=== PATIENT | female | born 1995 | race Caucasian/White ===

== ENCOUNTER 2016-06-19 22:23 | Emergency (ER) | payer BC ==
[~2016-06-19] VITALS: Ht 165.1 cm; Wt 81.8 kg
[~2016-06-19 22:23] MED LIST: ACET-818 PO; PEN500 PO
[2016-06-19 22:41] VITALS: Ht 165.1 cm; Wt 81.8 kg
[2016-06-20] MEDS ORDERED: LORAZEPAM 2 MG INJ IM ONE (00:30)
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
[2016-06-20] MEDS ORDERED: LORA-441 PO (00:58)
[2016-06-20 01:13] VITALS: BP 131/80; PULSE 75; RESP 18
== END 2016-06-20 01:13 | disposition home or self-care (01) ==
LOC: FTE 22:23
DX: F41.0 Panic disorder [episodic paroxysmal anxiety] (principal); J45.909 Unspecified asthma, uncomplicated; F17.210 Nicotine dependence, cigarettes, uncomplicated
CPT/HCPCS: 96372; J2060; Z7502; 93005

== ENCOUNTER 2016-08-22 05:50 | Emergency (ER) | payer BC ==
[~2016-08-22] VITALS: Ht 152.4 cm; Wt 97.5 kg
[~2016-08-22 05:50] MED LIST changes: +LORA-441 PO
[2016-08-22 05:55] VITALS: Ht 152.4 cm; Wt 97.5 kg
[2016-08-22] MEDS ORDERED: OXYC-279 PO (06:48)
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
== END 2016-08-22 07:14 | disposition home or self-care (01) ==
LOC: FTE 05:50
DX: S89.91XA Unspecified injury of right lower leg, initial encounter (principal); J45.909 Unspecified asthma, uncomplicated; F17.210 Nicotine dependence, cigarettes, uncomplicated; V89.2XXA Person injured in unspecified motor-vehicle accident, traffic, initial encounter
CPT/HCPCS: 29515; Z7502

== ENCOUNTER 2016-09-30 10:18 | Observation (INO) | payer BC ==
[2016-09-29 14:37] VITALS: Ht 193 cm; Wt 98.7 kg
[2016-09-30] VITALS (22 sets, daily range): BP systolic 89–157; BP diastolic 47–91; PULSE 89–116; RESP 16–44
[~2016-09-30] VITALS: Ht 193 cm; Wt 98.7 kg
[~2016-09-30 10:18] MED LIST changes: +CEFAZOLIN 1 GM INJ ONE; +DEXAMETHASONE 4 MG/ML 1 ML INJ ONE; +FENTAnyl 50 MCG/ML VIAL ONE; +GLYCOPYRROLATE 0.4 MG INJ ONE; +LIDOCAINE 2% (SDV) 5 ML INJ ONE; +MIDAZOLAM 1 MG/ML 2 ML INJ ONE; +NEOSTIGMINE 3 MG/3 ML SYRINGE ONE; +ONDANSETRON 4 MG INJ ONE; +OXYC-279 PO; +PROPOFOL 20 ML ONE; +ROCURONIUM 50 MG INJ ONE; +ROPIVACAINE 0.5 % 30 ML VIAL ONE; +SUCCINYLCHOLINE CHLORIDE 100 MG/5 ML SYG IV ONE
--- NOTE | 2016-09-30 12:44 | HPN ---
Date/Time of Note Date/Time of Note DATE: 09/30/16 TIME: 12:44 Interval H&P Admission Note Pt. seen H&P reviewed: No system changes MARY CARLSON MD Sep 30, 2016 12:44
[2016-09-30] MEDS ORDERED: ATROPINE 1 MG/10 ML SYRINGE IV PRN (13:00)
[2016-09-30] MEDS ORDERED: HYDROmorphONE (0.2 MG/ML) 10ML SYG IV PRN ×3 (13:00)
[2016-09-30] MEDS ORDERED: morphine 10 MG INJ IV PRN (13:00)
[2016-09-30] MEDS ORDERED: hydrALAzine 20 MG INJ IV PRN (13:00)
[2016-09-30] MEDS ORDERED: OXYCODONE/ACETAMINOPHEN (5/325) TAB PO PRN ×3 (13:00)
[2016-09-30] MEDS ORDERED: FENTAnyl 50 MCG/ML VIAL IV PRN (13:00)
[2016-09-30] MEDS ORDERED: MIDAZOLAM 1 MG/ML 2 ML INJ IV PRN (13:00)
[2016-09-30] MEDS ORDERED: LABETALOL HCL 20MG INJ IV PRN (13:00)
[2016-09-30] MEDS ORDERED: EPHEDrine SULFATE 50 MG/5 ML SYG IV PRN (13:00)
[2016-09-30] MEDS ORDERED: MEPERIDINE 25 MG INJ IV PRN (13:00)
[2016-09-30] MEDS ORDERED: morphine (1 MG/ML) 10ML SYRINGE IV PRN ×2 (13:00)
[2016-09-30] MEDS ORDERED: DIPHENHYDRAMINE 50 MG INJ IV PRN (13:00)
[2016-09-30] MEDS ORDERED: ONDANSETRON 4 MG INJ IV PRN ×2 (13:00→18:00)
[2016-09-30] MEDS ORDERED: LABETALOL HCL 20MG INJ ONE (13:22)
[2016-09-30] MEDS ORDERED: POLYMYXIN/BACITRACIN 1L IRRIG IRR ONE (13:58)
[2016-09-30] MEDS ORDERED: FENTAnyl 50 MCG/ML VIAL ONE (14:53)
[2016-09-30] MEDS ORDERED: hydrALAzine 20 MG INJ ONE (15:03)
[2016-09-30] MEDS: morphine (1 MG/ML) 10ML SYRINGE IV PRN ×5 (16:41→18:14)
[2016-09-30] MEDS ORDERED: KETOROLAC 30 MG INJ ONE (16:55)
[2016-09-30] MEDS ORDERED: KETOROLAC 30 MG INJ IV STA (16:56)
[2016-09-30] MEDS: FENTAnyl 50 MCG/ML VIAL IV PRN ×2 (17:05→17:41)
[2016-09-30] MEDS ORDERED: ROPIVACAINE 0.5 % 30 ML VIAL ONE (17:08)
--- NOTE | 2016-09-30 17:40 | OPR ---
Date/Time of Note Date/Time of Note DATE: 09/30/16 TIME: 17:40 Operative Report Procedure Date: Sep 30, 2016 Preoperative Diagnosis Right foot lateral process talus fracture Postoperative Diagnosis Right foot lateral process talus fracture Right ankle anterior talofibular ligament tear Operation Performed Right ankle partial excision of lateral process of the talus fracture fragment Right ankle lateral process of talus open reduction internal fixation Right ankle Brostrom Craig lateral ankle ligament reconstruction Surgeon: MARY CARLSON MD Anesthesia: general, other ( popliteal block) Anesthesiologist: MARIELY NAILS MD Tourniquet Time: 127 min at 250 mmHh Estimated Blood Loss: minimal Complications: None Pt Condition Post Procedure: stable Disposition: PACU MARY CARLSON MD Sep 30, 2016 17:40
[2016-09-30] MEDS ORDERED: CEFAZOLIN 1 GM INJ IV SCH (18:00)
[2016-09-30] MEDS ORDERED: ALPRAZOLAM 0.25 MG TAB PO PRN (18:00)
[2016-09-30] MEDS ORDERED: DIPHENHYDRAMINE 25 MG CAP PO PRN (18:00)
[2016-09-30] MEDS ORDERED: CEFAZOLIN 1 GM/50 ML (PMX) 50 ML IVPB ONE (18:17)
[2016-09-30] MEDS: oxyCODONE (CR) 10 MG TAB [oxyCONTIN] PO SCH (21:00)
[2016-10-01] VITALS: BP 120/64; PULSE 120; RESP 18
[2016-10-01] MEDS: oxyCODONE (CR) 10 MG TAB [oxyCONTIN] PO SCH ×8 (00:56→20:44)
[2016-10-01 01:02] VITALS: PULSE 111
[2016-10-01] MEDS: CEFAZOLIN 1 GM/50 ML (PMX) 50 ML IVPB SCH ×3 (01:21→17:35)
[2016-10-01] MEDS: HYDROmorphONE 1 MG/ML SYG IV PRN ×4 (01:24→21:47)
[2016-10-01 08:22] VITALS: BP 106/50; RESP 16
--- NOTE | 2016-10-01 09:54 | PN ---
Date/Time of Note Date/Time of Note DATE: 10/01/16 TIME: 09:54 Assessment/Plan Lines/Catheters IV Catheter Type (from Nrsg): Saline Lock Assessment/Plan Assessment/Plan POD#1 s/p 1. Right ankle partial excision of lateral process of the talus fracture fragment 2. Right ankle lateral process of talus open reduction internal fixation 3. Right ankle Brostrom Craig lateral ankle ligament reconstruction 4. Use of fluoroscopy 5. Application of short leg splint --- Pain controlled with PO - NWB to the RLE, PT to GT - SCDs, teds - dc home after cleared by pt Subjective 24 Hr Interval Summary Doing much better, pain is controlled. No f/c/n/v Constitutional: no complaints Feeding: advancing diet Pain Control: well controlled Exam/Review of Systems Vital Signs Vitals Vital Signs Date Time Temp Pulse Resp B/P Pulse Ox O2 Delivery O2 Flow Rate FiO2 10/01/16 21:00 97.9 94 18 129/72 100 Room Air Exam Constitutional: alert, oriented, well developed Musculoskeletal: other (RLE/ silt to the exposed toes, splint intact, toes wiggle, cr brisk, toes wwp) MARY CARLSON MD Oct 01, 2016 09:54
--- NOTE | 2016-10-01 09:54 | DS ---
Date/Time of Note Date/Time of Note DATE: 10/01/16 TIME: 09:54 Discharge Summary Admission/Discharge Info Admit Date/Time Discharge Date/Time 10/01/16 Final Diagnosis 1. Right ankle partial excision of lateral process of the talus fracture fragment 2. Right ankle lateral process of talus open reduction internal fixation 3. Right ankle Brostrom Craig lateral ankle ligament reconstruction 4. Use of fluoroscopy 5. Application of short leg splint Patient Condition: Good Procedures 1. Right ankle partial excision of lateral process of the talus fracture fragment 2. Right ankle lateral process of talus open reduction internal fixation 3. Right ankle Brostrom Craig lateral ankle ligament reconstruction 4. Use of fluoroscopy 5. Application of short leg splint Hospital Course Patient admitted for pain control s/p surgery. On pOD#1 pain was better. SILT to all exposed extremities, NVI, PT assisted in GT Home Meds Active Scripts Oxycodone HCl/Acetaminophen (Percocet 5-325 mg Tablet) 1 Each Tablet, 1 EACH PO BID, #20 TAB Prov:KI CARTER PA-C 08/22/16 Discontinued Scripts Lorazepam* (Ativan*) 0.5 Mg Tablet, 0.5 MG PO Q8H Y for ANXIETY, #6 TAB Prov:BELKYS CARVALHO PA-C 06/20/16 Penicillin V Potassium* (Penicillin V K*) 500 Mg Tab, 500 MG PO QID for 7 Days, TAB Prov:RAMIN ARNOLD MD 12/01/14 Acetaminophen-Codeine* (Tylenol No.3*) 300-30 Mg Tablet, 1 TAB PO Q6 Y for PAIN , #30 TAB Prov:RAMIN ARNOLD MD 12/01/14 Follow-up Plan w MARY Lawler MD Oct 01, 2016 09:54
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
--- NOTE | 2016-10-01 14:37 | RADRPT ---
PROCEDURE: Intraoperative imaging of the right ankle with fluoroscopy. CLINICAL INDICATION: Right ankle pain. Intraoperative. TECHNIQUE: 8 images of the right ankle were obtained in the operating room with an image intensifi er. No radiologist was in attendance. 61.2 seconds of fluoroscopy time was used. COMPARISON: No prior study is available for comparison. FINDINGS: Images demonstrate 2 screws transfixing a fracture of the inferior lateral aspect of the talus. IMPRESSION: 1. Intraoperative imaging of the right ankle. RPTAT: QQ .Alfonso Alas MD, MD Date Time Electronically viewed and signed by .Alfonso Alas MD, on 10/01/2016 14:37 .R/
--- NOTE | 2016-10-01 17:30 | PDOCDIS ---
Discharge Instructions CONDITION Patient Condition: Good HOME CARE INSTRUCTIONS: Diet Instructions: RegularSpecial Diet: CLEAR LIQUID ACTIVITY: Activity Restrictions: Do not Drive Do not operate Machinery Do not operate Power Tool Avoid Heavy Housework Keep Limb Elevated No Weight Bearing Bathing Restrictions: Shower FOLLOW UP/APPOINTMENTS Appointments 1 week MARY Jin MD Oct 01, 2016 17:30
[2016-10-01 20:58] VITALS: BP 129/72; RESP 18
[2016-10-01 21:00] VITALS: BP 129/72; PULSE 94; RESP 18
== END 2016-10-01 23:19 | disposition home or self-care (01) ==
LOC: SDS 10:18 → PP2 17:55 → SDS 17:55 → PP2 23:56
PROVIDERS: ADMIT Orthopaedic Surgery; ATTEND Orthopaedic Surgery
DX: S92.141A Displaced dome fracture of right talus, initial encounter for closed fracture (principal); S93.491A Sprain of other ligament of right ankle, initial encounter; X58.XXXA Exposure to other specified factors, initial encounter; Y92.89 Other specified places as the place of occurrence of the external cause
CPT/HCPCS: 27695; 28445; 73610; 82306; 84703; 96365; 96366; 96375; 96376; 97116; 97163; C1713; J0330; J0360; J0690; J1170; J1885; J2175; J2250; J2270; J2405; J2710; J2795; J3010; Z7500; Z7512; Z7610; G0378; J1100

== ENCOUNTER 2019-01-01 09:09 | Emergency (ER) | payer BC ==
[~2019-01-01] VITALS: Ht 160 cm; Wt 87.2 kg
[~2019-01-01 09:09] MED LIST changes: -ACET-818 PO; -CEFAZOLIN 1 GM INJ ONE; -DEXAMETHASONE 4 MG/ML 1 ML INJ ONE; -FENTAnyl 50 MCG/ML VIAL ONE; -GLYCOPYRROLATE 0.4 MG INJ ONE; -LIDOCAINE 2% (SDV) 5 ML INJ ONE; -LORA-441 PO; -MIDAZOLAM 1 MG/ML 2 ML INJ ONE; -NEOSTIGMINE 3 MG/3 ML SYRINGE ONE; -ONDANSETRON 4 MG INJ ONE; -PEN500 PO; -PROPOFOL 20 ML ONE; -ROCURONIUM 50 MG INJ ONE; -ROPIVACAINE 0.5 % 30 ML VIAL ONE; -SUCCINYLCHOLINE CHLORIDE 100 MG/5 ML SYG IV ONE
[2019-01-01 09:10] VITALS: BP 128/86; PULSE 94; RESP 22; Ht 160 cm; Wt 87.2 kg
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
[2019-01-01] MEDS: DIPHTH/TET/ACEL PERTUSS (ADULT) 0.5 ML VIAL IM* ONE ×2 (10:07→10:10)
== END 2019-01-01 10:30 | disposition home or self-care (01) ==
LOC: FTE 09:09
DX: S01.511A Laceration without foreign body of lip, initial encounter (principal); S09.90XA Unspecified injury of head, initial encounter; V49.50XA Passenger injured in collision with unspecified motor vehicles in traffic accident, initial encounter; Z87.891 Personal history of nicotine dependence
CPT/HCPCS: 90715; Z7502